=== PATIENT | female | born 1965 | race Caucasian/White ===

== ENCOUNTER 2017-04-26 12:12 | Emergency (ER) | payer BC ==
[2017-04-26 12:29] VITALS: BP 134/70
[2017-04-26] MEDS ORDERED: Albuterol/Ipratropium 3.0-0.5 MG/3 ML Neb Soln NEB SCH (12:45)
--- NOTE | 2017-04-26 13:37 | EDM.PDOC ---
ED HPI GENERAL MEDICAL PROBLEM - General Chief Complaint: Respiratory Problem Stated Complaint: COLD SYMPTOMS Time Seen by Provider: 04/26/17 13:01 Source of Information: Reports: Patient History Limitations: Reports: No Limitations - History of Present Illness INITIAL COMMENTS - FREE TEXT/NARRATIVE: Patient presents with loose cough, wheezing, runny nose for 3 days. She says she gets this every so often. She smokes not quite a ppd for many years. Her PCP has treated her with steroid, antibiotics and albuterol inhaler successfully in the past. She has an inhaler at home yet. No fever or sore throat. - Related Data Allergies Allergy/AdvReac Type Severity Reaction Status Date / Time No Known Drug Allergies Allergy none Verified 04/26/17 12:29 red dye Allergy UNKNOWN Verified 04/26/17 12:29 SUN Allergy UNKNOWN Uncoded 07/12/16 12:56 Home Meds: Home Meds Acetaminophen/Caffeine [Excedrin Tension Headache] 1 tab PO Q6HR PRN 08/16/15 [ History] Past Medical History - Past Health History Medical/Surgical History: Denies Medical/Surgical History HEENT History: Reports: Cataract, Impaired Vision Gastrointestinal History: Reports: None Genitourinary History: Reports: None Musculoskeletal History: Reports: None Other Dermatologic History: rash to arms bilaterally from the sun - Infectious Disease History Infectious Disease History: Reports: None - Past Surgical History HEENT Surgical History: Reports: Cataract Surgery GI Surgical History: Reports: Appendectomy Female Surgical History: Reports: Oophorectomy Other Female Surgeries/Procedures: right ovary removed as a child Other Musculoskeletal Surgeries/Procedures:: left fractured arm with pins Dermatological Surgical History: Reports: None Social & Family History - Tobacco Use Smoking Status *Q: Current Every Day Smoker Years of Tobacco use: 20 Packs/Tins Daily: 1 Used Tobacco, but Quit: No Second Hand Smoke Exposure: Yes - Caffeine Use Caffeine Use: Reports: Soda Other Caffeine Use: coke - Recreational Drug Use Recreational Drug Use: No ED ROS GENERAL - Review of Systems Review Of Systems: See Below Constitutional: Denies: Fever, Weakness HEENT: Denies: Throat Pain, Vision Change Respiratory: Reports: Shortness of Breath, Wheezing, Cough Cardiovascular: Denies: Chest Pain, Syncope GI/Abdominal: Denies: Abdominal Pain, Vomiting : Denies: Dysuria, Flank Pain Musculoskeletal: Reports: No Symptoms Skin: Denies: Cyanosis, Jaundice, Mottled, Pallor, Diaphoresis Neurological: Denies: Confusion, Dizziness, Headache Psychiatric: Denies: Agitation, Anxiety, Confusion ED EXAM, GENERAL - Physical Exam Exam: See Below Exam Limited By: No Limitations General Appearance: Alert, WD/WN, No Apparent Distress Eye Exam: Bilateral Eye: EOMI, Normal Inspection, PERRL Ears: Normal External Exam, Normal Canal, Hearing Grossly Normal, Normal TMs Nose: Normal Inspection, Normal Mucosa, No Blood Throat/Mouth: Normal Inspection, Normal Lips, Normal Oropharynx, Normal Voice, No Airway Compromise Head: Atraumatic, Normocephalic Neck: Normal Inspection, Supple, Non-Tender, Full Range of Motion Respiratory/Chest: No Accessory Muscle Use, Wheezing (bilat with expirations). No: Crackles, Rales, Rhonchi, Retractions Cardiovascular: Regular Rate, Rhythm, No Murmur GI/Abdominal: No Distention Back Exam: No: CVA Tenderness (L), CVA Tenderness (R) Extremities: Normal Inspection, Normal Range of Motion Neurological: Alert, Oriented, Normal Cognition, No Motor/Sensory Deficits Psychiatric: Normal Affect, Normal Mood Skin Exam: Warm, Dry, Intact, Normal Color, No Rash Course - Vital Signs Last Recorded V/S: Last Vital Signs Temp 96.8 F 04/26/17 12:26 Pulse 77 04/26/17 12:26 Resp 24 H 04/26/17 12:26 BP 134/70 04/26/17 12:26 Pulse Ox 92 L 04/26/17 12:26 - Orders/Labs/Meds Orders: Active Orders 24 hr Category Date Time Status RT Aerosol Therapy [RC] ASDIRECTED Care 04/26/17 12:40 Active Chest 2V [CR] Stat Exams 04/26/17 12:39 Taken Albuterol/Ipratropium [DuoNeb 3.0-0.5 MG/3 ML] Med 04/26/17 12:45 Active 3 ml NEB ONETIME Medication Orders Albuterol/Ipratropium (Duoneb 3.0-0.5 Mg/3 Ml) 3 ml NEB ONETIME BRITNI Last Admin: 04/26/17 12:48 Dose: 3 ml Meds: Medications Generic Name Dose Route Start Last Admin Trade Name Freq PRN Reason Stop Dose Admin Albuterol/Ipratropium 3 ml 04/26/17 12:45 04/26/17 12:48 Duoneb 3.0-0.5 Mg/3 Ml NEB 3 ml ONETIME BRITNI Administration - Re-Assessments/Exams Free Text/Narrative Re-Assessment/Exam: 04/26/17 13:39 Patient breathing easier following DuoNeb. CXR is normal. Discussed findings and treatment plan with patient; also discussed the possible benefit smoking cessation would provide for her. Will treat with Z-pack and Medrol Dosepack along with her nebulizer at home. Departure - Departure Time of Disposition: 13:43 Disposition: Home, Self-Care 01 Condition: Good Clinical Impression: Wheezing-associated respiratory infection, Smoker's respiratory syndrome - Discharge Information Forms: ED Department Discharge Additional Instructions: 1. Drink 8 cups of water daily. 2. Take prescriptions as directed. 3. Use albuterol inhaler as needed. 4. Follow up with your PCP in 2-3 days if not improving. 5. Recheck with your PCP sooner if worsening or go to ER. 6. I strongly encourage to try to stop smoking as we discussed. Your PCP can help you with this if you want. - My Orders Last 24 Hours: My Active Orders 04/26/17 12:39 Chest 2V [CR] Stat 04/26/17 12:40 RT Aerosol Therapy [RC] ASDIRECTED 04/26/17 12:45 Albuterol/Ipratropium [DuoNeb 3.0-0.5 MG/3 ML] 3 ml NEB ONETIME - Assessment/Plan Last 24 Hours: My Active Orders 04/26/17 12:39 Chest 2V [CR] Stat 04/26/17 12:40 RT Aerosol Therapy [RC] ASDIRECTED 04/26/17 12:45 Albuterol/Ipratropium [DuoNeb 3.0-0.5 MG/3 ML] 3 ml NEB ONETIME
== END 2017-04-26 13:55 | disposition home or self-care (01) ==
LOC: KA.ED 12:12
DX: J98.8 Other specified respiratory disorders (principal); H54.7 Unspecified visual loss; F17.210 Nicotine dependence, cigarettes, uncomplicated; Z98.890 Other specified postprocedural states; Z98.49 Cataract extraction status, unspecified eye; Z91.048 Other nonmedicinal substance allergy status; Z91.041 Radiographic dye allergy status; Z90.49 Acquired absence of other specified parts of digestive tract
CPT/HCPCS: 71020; 99283

== ENCOUNTER 2019-04-15 05:45 | Emergency (ER) | payer BC ==
[2019-04-15] MEDS ORDERED: Dexamethasone 10 MG/ML SDV IM ONE (06:02)
[2019-04-15] MEDS ORDERED: Albuterol/Ipratropium 3.0-0.5 MG/3 ML Neb Soln NEB ONE ×2 (06:02→07:04)
[2019-04-15 06:03] VITALS: BP 153/75
--- NOTE | 2019-04-15 06:14 | EDM.PDOC ---
ED HPI GENERAL MEDICAL PROBLEM - General Chief Complaint: General Stated Complaint: Congestion Time Seen by Provider: 04/15/19 06:02 Source of Information: Reports: Patient History Limitations: Reports: No Limitations - History of Present Illness INITIAL COMMENTS - FREE TEXT/NARRATIVE: Patient is a 53-year-old female who presents to the emergency department this morning with a complaint of cough and upper respiratory symptoms. Patient states his symptoms began about a week ago, and has progressed since. Patient states she does have a cough and is productive for clear phlegm. Patient has felt warm but has not documented a fever. Patient smokes approximately one pack of cigarettes per day. Patient denies chest pain, lower extremity edema, family members with similar symptoms, out of country travel, nausea, vomiting, diarrhea or exposure to any chemicals. Onset: Gradual Duration: Day(s): Location: Reports: Chest Severity: Mild Improves with: Reports: None Worsens with: Reports: None Associated Symptoms: Reports: Cough, cough w sputum, Shortness of Breath. 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 - Related Data Allergies Allergy/AdvReac Type Severity Reaction Status Date / Time No Known Drug Allergies Allergy none Verified 04/15/19 05:49 red dye Allergy UNKNOWN Verified 04/15/19 05:49 SUN Allergy UNKNOWN Uncoded 04/15/19 05:49 Home Meds: Home Meds Acetaminophen/Caffeine [Excedrin Tension Headache Cplt] 1 each PO ASDIRECTED PRN 04/15/19 [History] Albuterol [Ventolin HFA] 1 puff INH Q4HR PRN 04/15/19 [History] Azithromycin [Zithromax] 500 mg PO DAILY #2 tab 04/15/19 [Rx] DM Hb/PE/Acetaminophen/Chlorph [[place] Plus Cld-Cough] 1 each PO ASDIRECTED PRN 04/15/19 [History] predniSONE [Prednisone] 20 mg PO DAILY #5 tablet 04/15/19 [Rx] Past Medical History - Past Health History Medical/Surgical History: Denies Medical/Surgical History HEENT History: Reports: Cataract, Impaired Vision Gastrointestinal History: Reports: None Genitourinary History: Reports: None Musculoskeletal History: Reports: None Other Dermatologic History: rash to arms bilaterally from the sun - Infectious Disease History Infectious Disease History: Reports: None - Past Surgical History HEENT Surgical History: Reports: Cataract Surgery GI Surgical History: Reports: Appendectomy Female Surgical History: Reports: Oophorectomy Other Female Surgeries/Procedures: right ovary removed as a child Other Musculoskeletal Surgeries/Procedures:: left fractured arm with pins Dermatological Surgical History: Reports: None Social & Family History - Caffeine Use Caffeine Use: Reports: Soda Other Caffeine Use: coke ED ROS GENERAL - Review of Systems Review Of Systems: ROS reveals no pertinent complaints other than HPI. Constitutional: Reports: No Symptoms HEENT: Reports: No Symptoms Respiratory: Reports: Shortness of Breath, Wheezing, Cough, Sputum Cardiovascular: Reports: No Symptoms Endocrine: Reports: No Symptoms GI/Abdominal: Reports: No Symptoms : Reports: No Symptoms Musculoskeletal: Reports: No Symptoms Skin: Reports: No Symptoms Neurological: Reports: No Symptoms Psychiatric: Reports: No Symptoms Hematologic/Lymphatic: Reports: No Symptoms Immunologic: Reports: No Symptoms ED EXAM, GENERAL - Physical Exam Exam: See Below Exam Limited By: No Limitations General Appearance: Alert, WD/WN, No Apparent Distress Nose: Normal Inspection, Normal Mucosa, No Blood Throat/Mouth: Normal Inspection, Normal Oropharynx, No Airway Compromise Head: Atraumatic, Normocephalic Neck: Normal Inspection Respiratory/Chest: No Respiratory Distress, Wheezing (Bilateral throughout) Cardiovascular: Regular Rate, Rhythm, No Murmur GI/Abdominal: Normal Bowel Sounds, Soft, Non-Tender Neurological: Alert, Oriented, Normal Cognition Psychiatric: Normal Affect, Normal Mood Skin Exam: Warm, Dry, Intact, Normal Color, No Rash Lymphatic: No Adenopathy Course - Vital Signs Last Recorded V/S: Last Vital Signs Temp 97.2 F 04/15/19 05:51 Pulse 70 04/15/19 06:20 Resp 20 04/15/19 05:51 BP 153/75 H 04/15/19 06:03 Pulse Ox 93 L 04/15/19 06:20 - Orders/Labs/Meds Orders: Active Orders 24 hr Category Date Time Status RT Aerosol Therapy [RC] ASDIRECTED Care 04/15/19 06:03 Active RT Aerosol Therapy [RC] ASDIRECTED Care 04/15/19 07:04 Ordered Chest 2V [CR] Stat Exams 04/15/19 06:35 Taken Albuterol/Ipratropium [DuoNeb 3.0-0.5 MG/3 ML] Med 04/15/19 07:04 Once 3 ml NEB ONETIME ONE Medication Orders Albuterol/Ipratropium (Duoneb 3.0-0.5 Mg/3 Ml) 3 ml NEB ONETIME ONE Stop: 04/15/19 07:05 Meds: Medications Generic Name Dose Route Start Last Admin Trade Name Freq PRN Reason Stop Dose Admin Albuterol/Ipratropium 3 ml 04/15/19 07:04 Duoneb 3.0-0.5 Mg/3 Ml NEB 04/15/19 07:05 ONETIME ONE Discontinued Medications Generic Name Dose Route Start Last Admin Trade Name Freq PRN Reason Stop Dose Admin Albuterol/Ipratropium 3 ml 04/15/19 06:02 04/15/19 06:09 Duoneb 3.0-0.5 Mg/3 Ml NEB 04/15/19 06:03 3 ml ONETIME ONE Administration Dexamethasone 8 mg 04/15/19 06:02 04/15/19 06:35 Dexamethasone IM 04/15/19 06:03 8 mg ONETIME ONE Administration - Radiology Interpretation Free Text/Narrative:: Chest x-ray shows bronchitis / copd - Re-Assessments/Exams Free Text/Narrative Re-Assessment/Exam: 04/15/19 07:07 Patient afebrile, vital signs stable, wheezing improved following 2 nebulizer treatments and 8 mg Decadron. Patient will be discharged with prednisone, albuterol MDI, Zithromax prescription, and follow-up with PCP Departure - Departure Time of Disposition: 07:21 Disposition: Home, Self-Care 01 Condition: Good Clinical Impression: Bronchitis - Discharge Information Instructions: How to Use a Metered Dose Inhaler, Chronic Obstructive Pulmonary Disease Exacerbation, [id number], Bronchospasm, Adult Referrals: Rose Lagos MD [Primary Care Provider] - Forms: ED Department Discharge Additional Instructions: Follow-up with Dr. Griffiths within 1-2 days. Return to emergency department sooner if symptoms continue or worsen. Smoking cessation is important for resolution of symptoms. Take medication as directed - My Orders Last 24 Hours: My Active Orders 04/15/19 06:03 RT Aerosol Therapy [RC] ASDIRECTED 04/15/19 06:35 Chest 2V [CR] Stat 04/15/19 07:04 RT Aerosol Therapy [RC] ASDIRECTED Albuterol/Ipratropium [DuoNeb 3.0-0.5 MG/3 ML] 3 ml NEB ONETIME ONE - Assessment/Plan Last 24 Hours: My Active Orders 04/15/19 06:03 RT Aerosol Therapy [RC] ASDIRECTED 04/15/19 06:35 Chest 2V [CR] Stat 04/15/19 07:04 RT Aerosol Therapy [RC] ASDIRECTED Albuterol/Ipratropium [DuoNeb 3.0-0.5 MG/3 ML] 3 ml NEB ONETIME ONE Assessment:: Bronchitis Plan: Follow-up with PCP
[2019-04-15 06:24] VITALS: PULSE 70
[2019-04-15] MEDS ORDERED: Azithromycin 250 MG Tab PO ONE (07:10)
[2019-04-15] MEDS ORDERED: Albuterol 8 GM Inhaler INH ONE (07:11)
--- NOTE | 2019-04-15 09:09 | CR ---
[id number] RAD/RAD Chest PA And Lateral EXAM: RAD Chest PA And Lateral CLINICAL DATA: SHORTNESS OF BREATH COMPARISON: CORRELATION IS MADE WITH THE EXAM OF DECEMBER 15, 2017. FINDINGS: There appears to be upper lobe bullous disease. The lungs otherwise are clear. The cardiomediastinal contour is stable. IMPRESSION: QUESTION OF UPPER LOBE BULLOUS DISEASE. Thor Fisher MD 04/15/19 0907 Thank you for allowing us to participate in the care of your patient.
== END 2019-04-15 07:30 | disposition home or self-care (01) ==
LOC: KA.ED 05:45
DX: J40 Bronchitis, not specified as acute or chronic (principal); Z91.09 Other allergy status, other than to drugs and biological substances; Z79.899 Other long term (current) drug therapy
CPT/HCPCS: 71046; 94640; 96372; 99284; A9270; J1100; J7620-GY

== ENCOUNTER 2022-09-01 10:03 | Observation (INO) | payer BC ==
[2022-09-01] MEDS ORDERED: Sodium Chloride 0.9% 10 ML Syringe FLUSH PRN (10:22)
[2022-09-01] MEDS ORDERED: Sodium Chloride 0.9% 1,000 ML IV ONE (10:22)
[2022-09-01] MEDS ORDERED: Iopamidol 755 Mg/ML 75 ML Bottle IVPUSH ONE (10:59)
[2022-09-01 11:00] LABS: ANION GAP 11.8 mmol/L (5-15)
[2022-09-01] MEDS ORDERED: Sodium Chloride 0.9% 50 ML IV SCH (11:00)
[2022-09-01] MEDS ORDERED: Ciprofloxacin in D5W 400 MG in Premix Bag 1 BAG IV ONE ×2 (12:06)
[2022-09-01] MEDS ORDERED: metroNIDAZOLE/Normal Saline 500 MG in Premix Bag 1 BAG IV ONE (12:06)
[2022-09-01] MEDS: metroNIDAZOLE/Normal Saline 500 MG in Premix Bag 1 BAG IV SCH ×2 (13:03→20:12)
[2022-09-01] MEDS: Sodium Chloride 0.9% 1,000 ML IV SCH (13:04)
[2022-09-01] MEDS: Ciprofloxacin in D5W 200 MG in Premix Bag 1 BAG IV SCH ×2 (14:19)
[2022-09-02] MEDS: Ciprofloxacin in D5W 200 MG in Premix Bag 1 BAG IV SCH ×2 (00:37)
[2022-09-02] MEDS: Sodium Chloride 0.9% 1,000 ML IV SCH (03:32)
[2022-09-02] MEDS: metroNIDAZOLE/Normal Saline 500 MG in Premix Bag 1 BAG IV SCH ×2 (03:40→03:45)
[2022-09-02 06:17] VITALS: BP 152/78; PULSE 70
[2022-09-02 07:51] LABS: ANION GAP 9.4 mmol/L (5-15)
== END 2022-09-02 10:28 | disposition home or self-care (01) ==
LOC: KA.ED 10:03 → KA.MS 12:27
PROVIDERS: ADMIT Physician Assistant Medical; ATTEND Internal Medicine
DX: K52.9 Noninfective gastroenteritis and colitis, unspecified (principal); K92.2 Gastrointestinal hemorrhage, unspecified; Z98.890 Other specified postprocedural states
CPT/HCPCS: 36415; 74177; 80053; 81003; 82272; 83690; 85014; 85018; 85025; 87324; 87449; J0744; J3490; J7030; Q9967

== ENCOUNTER 2022-09-17 10:11 | Day surgery (SDC) | payer BC ==
[2022-09-17] MEDS ORDERED: Lactated Ringers 1,000 ML IV SCH (10:15)
[2022-09-17] MEDS ORDERED: Sodium Chloride 0.9% 10 ML Syringe FLUSH PRN (10:15)
[2022-09-17] MEDS ORDERED: Midazolam 1 MG/ML 2 ML SDV ONE (11:48)
[2022-09-17] MEDS ORDERED: Propofol 200 MG/20 ML SDV ONE (11:48)
[2022-09-17 16:23] VITALS: BP 139/69; PULSE 54
== END 2022-09-17 14:14 | disposition home or self-care (01) ==
LOC: KA.SDS 10:11
PROVIDERS: ATTEND Surgery
DX: D12.5 Benign neoplasm of sigmoid colon (principal); D12.3 Benign neoplasm of transverse colon; K57.30 Diverticulosis of large intestine without perforation or abscess without bleeding; J44.9 Chronic obstructive pulmonary disease, unspecified; E86.0 Dehydration; Z91.041 Radiographic dye allergy status; Z79.899 Other long term (current) drug therapy; Z90.49 Acquired absence of other specified parts of digestive tract; Z98.890 Other specified postprocedural states
CPT/HCPCS: 00811; J2250; J2704; J3490; J7120

== ENCOUNTER 2022-10-28 04:22 | Emergency (ER) | payer BC ==
[2022-10-28 04:33] VITALS: BP 169/87; PULSE 64
[2022-10-28] MEDS: hydrOXYzine HCl 25 MG Tab PO ONE (05:08)
== END 2022-10-28 05:15 | disposition home or self-care (01) ==
LOC: KA.ED 04:22
DX: R21 Rash and other nonspecific skin eruption (principal); Z91.09 Other allergy status, other than to drugs and biological substances; Z91.041 Radiographic dye allergy status
CPT/HCPCS: 99282; 99283; A9270-GY

== ENCOUNTER 2023-03-18 11:26 | Day surgery (SDC) | payer BC ==
[2023-03-18] MEDS ORDERED: Sodium Chloride 0.9% 10 ML Syringe FLUSH PRN (12:00)
[2023-03-18] MEDS: Lactated Ringers 1,000 ML IV SCH ×2 (12:04→12:24)
[2023-03-18] MEDS ORDERED: Midazolam 1 MG/ML 2 ML SDV ONE (12:39)
[2023-03-18] MEDS ORDERED: Propofol 200 MG/20 ML SDV ONE (12:39)
[2023-03-18 15:06] VITALS: PULSE 61
[2023-03-18 15:15] VITALS: BP 172/71
== END 2023-03-18 14:25 | disposition home or self-care (01) ==
LOC: KA.SDS 11:26
PROVIDERS: ATTEND Surgery
DX: Z12.11 Encounter for screening for malignant neoplasm of colon (principal); D12.0 Benign neoplasm of cecum; D12.4 Benign neoplasm of descending colon; K57.30 Diverticulosis of large intestine without perforation or abscess without bleeding; F17.200 Nicotine dependence, unspecified, uncomplicated; J44.9 Chronic obstructive pulmonary disease, unspecified; Z86.010 Personal history of colon polyps; Z79.899 Other long term (current) drug therapy; Z98.890 Other specified postprocedural states; Z90.49 Acquired absence of other specified parts of digestive tract; Z91.048 Other nonmedicinal substance allergy status
CPT/HCPCS: 00812; J2250; J2704; J7120

== ENCOUNTER 2024-01-27 06:29 | Emergency (ER) | payer BC ==
[2024-01-27] MEDS: Ketorolac 30 MG/ML SDV IM ONE (06:54)
[2024-01-27 06:57] LABS: BASOPHILS ABSOLUTE AUTO 0.06 10^3/uL (0.00-0.10); BASOPHILS PERCENT AUTO 0.6 % (0.0-1.0); EOSINOPHILS ABSOLUTE AUTO 0.14 10^3/uL (0.10-0.30); EOSINOPHILS PERCENT AUTO 1.4 % (1.0-3.0); HEMATOCRIT 45.3 % (37.0-47.0); IMMATURE GRAN ABSOLUTE AUTO 0.01 10^3/uL (0.00-0.50); IMMATURE GRAN PERCENT AUTO 0.1 % (0.0-5.0); LYMPHOCYTES ABSOLUTE AUTO 1.73 10^3/uL (1.00-4.00); LYMPHOCYTES PERCENT AUTO 16.9 % (20.0-40.0); MEAN CORPUSCULAR HEMOGLOBIN 31.6 pg (27.0-31.0); MEAN CORPUSCULAR HGB CONC 33.1 g/dL (32.0-36.0); MEAN CORPUSCULAR VOLUME 95.6 fL (82.0-92.0); MEAN PLATELET VOLUME 9.3 fL (7.4-10.4); MONOCYTES ABSOLUTE AUTO 0.82 10^3/uL (0.10-0.80); PLATELET COUNT,PLT 232 10^3/uL (150-400); RED BLOOD CELL COUNT 4.74 10^6/uL (3.80-5.50); RED CELL DISTRIBUTION WIDTH 12.3 % (11.5-14.5); WHITE BLOOD CELL COUNT,WBC 10.26 10^3/uL (5.00-10.00)
[2024-01-27 07:12] LABS: ALBUMIN 3.7 g/dL (3.40-5.00); ANION GAP 11.8 mmol/L (5-15); BILIRUBIN TOTAL 0.5 mg/dL (0.2-1.0); CALCIUM 9.2 mg/dL (8.7-10.3); CARBON DIOXIDE,CO2 31.9 mmol/L (21.0-32.0); CREATININE 0.7 mg/dL (0.51-1.17); EST CRCL DRUG DOSING (CG) 73.8 mL/min; POTASSIUM,K 4.7 mmol/L (3.5-5.1); PROTEIN TOTAL,TP 7.4 g/dL (6.4-8.2)
[2024-01-27 08:06] VITALS: BP 164/71; PULSE 64
== END 2024-01-27 08:30 | disposition home or self-care (01) ==
LOC: KA.ED 06:29
DX: R07.89 Other chest pain (principal); F17.200 Nicotine dependence, unspecified, uncomplicated; Z91.041 Radiographic dye allergy status
CPT/HCPCS: 36415; 71101-RT; 80053; 85025; 96372; 99285; J1885

== ENCOUNTER 2024-04-09 21:02 | Emergency (ER) | payer BC ==
[2024-04-09 21:18] VITALS: BP 147/73; PULSE 65
[2024-04-09 21:31] LABS: BASOPHILS ABSOLUTE AUTO 0.06 10^3/uL (0.00-0.10); BASOPHILS PERCENT AUTO 0.6 % (0.0-1.0); EOSINOPHILS ABSOLUTE AUTO 0.19 10^3/uL (0.10-0.30); HEMATOCRIT 42.5 % (37.0-47.0); HEMOGLOBIN 14.4 g/dL (12.0-16.0); IMMATURE GRAN ABSOLUTE AUTO 0.02 10^3/uL (0.00-0.50); IMMATURE GRAN PERCENT AUTO 0.2 % (0.0-5.0); LYMPHOCYTES ABSOLUTE AUTO 2.85 10^3/uL (1.00-4.00); LYMPHOCYTES PERCENT AUTO 29.5 % (20.0-40.0); MEAN CORPUSCULAR HEMOGLOBIN 32.9 pg (27.0-31.0); MEAN CORPUSCULAR HGB CONC 33.9 g/dL (32.0-36.0); MONOCYTES ABSOLUTE AUTO 0.78 10^3/uL (0.10-0.80); MONOCYTES PERCENT AUTO 8.1 % (2.0-8.0); NEUTROPHILS ABSOLUTE AUTO 5.76 10^3/uL (2.50-7.00); NEUTROPHILS PERCENT AUTO 59.6 % (50.0-70.0); PLATELET COUNT,PLT 208 10^3/uL (150-400); RED BLOOD CELL COUNT 4.38 10^6/uL (3.80-5.50); RED CELL DISTRIBUTION WIDTH 12.7 % (11.5-14.5); WHITE BLOOD CELL COUNT,WBC 9.66 10^3/uL (5.00-10.00)
[2024-04-09 21:47] LABS: ALBUMIN 3.84 g/dL (3.40-5.00); ANION GAP 17.3 mmol/L (5-15); BILIRUBIN TOTAL 0.5 mg/dL (0.2-1.0); CALCIUM 8.7 mg/dL (8.7-10.3); CARBON DIOXIDE,CO2 25.8 mmol/L (21.0-32.0); CREATININE 0.73 mg/dL (0.51-1.17); EST CRCL DRUG DOSING (CG) 73.74 mL/min; POTASSIUM,K 4.1 mmol/L (3.5-5.1); PROTEIN TOTAL,TP 7.2 g/dL (6.4-8.2)
[2024-04-09] MEDS ORDERED: LORazepam 2 MG/ML SDV IVPUSH ONE (22:21)
[2024-04-09] MEDS: metroNIDAZOLE 500 MG Tab PO ONE (23:03)
== END 2024-04-09 23:07 | disposition home or self-care (01) ==
LOC: KA.ED 21:02
DX: R19.7 Diarrhea, unspecified (principal); F17.210 Nicotine dependence, cigarettes, uncomplicated; Z79.899 Other long term (current) drug therapy; Z91.048 Other nonmedicinal substance allergy status
CPT/HCPCS: 36415; 80053; 85025; 99284; A9270-GY

== ENCOUNTER 2025-07-28 08:10 | Emergency (ER) | payer BC ==
[2025-07-28] MEDS ORDERED: Sodium Chloride 0.9% 10 ML Syringe FLUSH PRN (08:24)
[2025-07-28] MEDS: Ondansetron 4 MG/2 ML SDV IVPUSH ONE (08:29)
[2025-07-28 08:43] LABS: BASOPHILS ABSOLUTE AUTO 0.03 10^3/uL (0.00-0.10); BASOPHILS PERCENT AUTO 0.2 % (0.0-1.0); EOSINOPHILS ABSOLUTE AUTO 0.00 10^3/uL (0.10-0.30); EOSINOPHILS PERCENT AUTO 0.0 % (1.0-3.0); IMMATURE GRAN ABSOLUTE AUTO 0.06 10^3/uL (0.00-0.04); IMMATURE GRAN PERCENT AUTO 0.4 % (0.0-0.4); LYMPHOCYTES ABSOLUTE AUTO 1.25 10^3/uL (1.00-4.00); LYMPHOCYTES PERCENT AUTO 9.2 % (20.0-40.0); MEAN PLATELET VOLUME 9.7 fL (7.4-10.4); MONOCYTES ABSOLUTE AUTO 0.76 10^3/uL (0.10-0.80); MONOCYTES PERCENT AUTO 5.6 % (2.0-8.0); NEUTROPHILS ABSOLUTE AUTO 11.55 10^3/uL (2.50-7.00); NEUTROPHILS PERCENT AUTO 84.6 % (50.0-70.0); PLATELET COUNT,PLT 296 10^3/uL (150-400); RED BLOOD CELL COUNT 4.22 10^6/uL (3.80-5.50); RED CELL DISTRIBUTION WIDTH 12.3 % (11.5-14.5); WHITE BLOOD CELL COUNT,WBC 13.65 10^3/uL (5.00-10.00)
[2025-07-28 09:00] LABS: ALANINE AMINOTRANSFERASE,ALT 28 U/L (14-63); ASPARTATE AMNIOTRANSFERASE,AST 28 U/L (15-37); BILIRUBIN TOTAL 0.7 mg/dL (0.2-1.0); BLOOD UREA NITROGEN,BUN 9 mg/dL (7-18); CARBON DIOXIDE,CO2 23.0 mmol/L (21.0-32.0); CHLORIDE,CL 94 mmol/L (98-107); CREATININE 0.51 mg/dL (0.51-1.17); EST CRCL DRUG DOSING (CG) 98.76 mL/min; GLUCOSE RANDOM 137 mg/dL (70-140); POTASSIUM,K 4.4 mmol/L (3.5-5.1); PROTEIN TOTAL,TP 7.1 g/dL (6.4-8.2); SODIUM,NA 131 mmol/L (136-145)
[2025-07-28 09:03] LABS: ESTIMATED GFR 105 mL/min (>=60); ETHANOL BLOOD MEDICAL < 3 mg/dL (<3)
[2025-07-28 09:04] LABS: CREATINE KINASE,CK 317 U/L (26-276)
[2025-07-28 12:02] VITALS: BP 192/74; PULSE 103
[2025-07-28 13:29] LABS: APPEARANCE,URINE CLEAR (CLEAR); GLUCOSE,URINE NEGATIVE (NEGATIVE)
[2025-07-28 13:30] LABS: EPITHELIAL CELLS,URINE RARE /LPF; OCCULT BLOOD,URINE TRACE-INTACT (NEGATIVE)
== END 2025-07-28 11:58 ==
LOC: KA.ED 08:15
DX: S72.142A Displaced intertrochanteric fracture of left femur, initial encounter for closed fracture (principal); E87.1 Hypo-osmolality and hyponatremia; D72.829 Elevated white blood cell count, unspecified; Z91.041 Radiographic dye allergy status; Z91.09 Other allergy status, other than to drugs and biological substances; Z79.899 Other long term (current) drug therapy; Z90.49 Acquired absence of other specified parts of digestive tract; W19.XXXA Unspecified fall, initial encounter
CPT/HCPCS: 36415; 51702; 71045; 72170; 80053; 80307; 81001; 82550; 83735; 84484; 85025; 96361; 96374; 96375; 96376; 99285-25; J1171; J2405; J7030

== ENCOUNTER 2025-08-02 10:25 | Inpatient (IN) | payer BC ==
[2025-08-02] MEDS ORDERED: Ondansetron 4 MG Tab.DIS PO PRN (16:18)
[2025-08-02] MEDS: Sennosides/Docusate Sodium 50-8.6 MG Tab PO SCH (16:43)
[2025-08-03] MEDS: Albuterol 0.083% 2.5 MG/3 ML Neb Soln NEB PRN (15:46)
[2025-08-04] MEDS ORDERED: Non-Formulary Medication 1 Each (Nicotine Polacrilex [Nicotine Lozenge] 2 MG Lozenge) PO PRN (06:52)
[2025-08-04] MEDS: Tiotropium BR/Olodaterol HCL 4 GM Inhalation Spray 2.5mcg/1 dose; 10 doses INH SCH (08:52)
[2025-08-04 09:51] LABS: CREATININE 0.5 mg/dL (0.51-1.17); EST CRCL DRUG DOSING (CG) 100.74 mL/min
[2025-08-04 09:57] LABS: ESTIMATED GFR 106.0 mL/min (>=60)
[2025-08-08 13:20] VITALS: BP 126/46; PULSE 75
== END 2025-08-08 13:18 | disposition home or self-care (01) | DRG 861 ==
LOC: KA.MS 15:05
PROVIDERS: ADMIT Internal Medicine; ATTEND Internal Medicine
DX: R53.81 Other malaise (principal); H26.9 Unspecified cataract; H54.7 Unspecified visual loss; I10 Essential (primary) hypertension; J44.9 Chronic obstructive pulmonary disease, unspecified; Z87.19 Personal history of other diseases of the digestive system; Z98.49 Cataract extraction status, unspecified eye; Z90.49 Acquired absence of other specified parts of digestive tract; S72.002D Fracture of unspecified part of neck of left femur, subsequent encounter for closed fracture with routine healing; Z98.890 Other specified postprocedural states; Z91.048 Other nonmedicinal substance allergy status; Z91.09 Other allergy status, other than to drugs and biological substances; Z79.51 Long term (current) use of inhaled steroids; Z79.899 Other long term (current) drug therapy; W18.30XD Fall on same level, unspecified, subsequent encounter
CPT/HCPCS: 36415; 82565; 94640; 97110-GP; 97116-GP; 97161-GP; 97165-GO; 97530-GO; 97535-GO; 99306-GT; 99316-GT; A9270-GY; J1650; Q3014